=== PATIENT | male | born 1935 | race African-American/Black ===

== ENCOUNTER 2021-11-05 09:25 | Emergency (ER) | payer OTHER ==
--- NOTE | 2021-11-05 12:04 | ER ---
Nurse's Notes [facility] Name: Dean Cho Age: 85 yrs Sex: Male : 1935 Arrival Date: 11/05/2021 Time: 09:27 Bed 1 Private MD: Diagnosis: Coronavirus infection, unspecified Presentation: 11/05 10:02 Chief complaint: Patient states: he was around his neighbor over the weekend who ended ap3 up testing positive for COVID. Patient reports that he is having cold-like symptoms at this time. Coronavirus screen: Client presents with at least one sign or symptom that may indicate coronavirus-19. Ebola Screen: No symptoms or risks identified at this time. Initial Sepsis Screen: Does the patient meet any 2 criteria? No. Patient's initial sepsis screen is negative. Does the patient have a suspected source of infection? No. Patient's initial sepsis screen is negative. Risk Assessment: Do you want to hurt yourself or someone else? Patient reports no desire to harm self or others. Onset of symptoms was November 03, 2021. 10:02 Method Of Arrival: Ambulatory ap3 10:02 Acuity: LUCY 4 ap3 Triage Assessment: 10:05 General: Appears in no apparent distress. Behavior is calm, cooperative. Pain: Denies ap3 pain. Neuro: Level of Consciousness is awake, alert, obeys commands, Oriented to person, place, time, situation, Gait is steady. Cardiovascular: Patient's skin is warm and dry. Respiratory: Reports cough that is Airway is patent Respiratory effort is even, unlabored. Historical: - Allergies: 10:04 No Known Allergies; ap3 - PMHx: 10:04 Cancer; Colon; Hyperlipidemia; Hypertension; ileostomy; ap3 - Immunization history:: Client reports receiving the 2nd dose of the Covid vaccine. - Social history:: Smoking status: Patient denies any tobacco usage or history of. Screenin:05 Abuse screen: Denies threats or abuse. Nutritional screening: No deficits noted. ap3 Tuberculosis screening: No symptoms or risk factors identified. Fall Risk None identified. Assessment: 12:15 General: Appears in no apparent distress. comfortable, Behavior is calm, cooperative. ss Neuro: Ashley Agitation-Sedation Scale (RASS): 0 - Alert and Calm. Cardiovascular: Capillary refill < 3 seconds. Respiratory: Airway is patent Respiratory effort is even, unlabored, Respiratory pattern is regular, symmetrical. Derm: Skin is intact, is healthy with good turgor, Skin is dry, Skin is pink, warm \T\ dry. normal. Vital Signs: 10:02 BP 140 / 74; Pulse 97; Resp 17; Temp 97.9; Pulse Ox 100% ; Weight 66.68 kg; Height 5 ap3 ft. 10 in. (177.80 cm); 10:02 Body Mass Index 21.09 (66.68 kg, 177.80 cm) ap3 ED Course: 09:27 Patient arrived in ED. rg4 09:34 [facility] Snider [facility]C [facility] kb 09:34 Nikhil Childress MD is Attending Physician. kb 10:04 Triage completed. ap3 10:06 Arm band placed on right wrist. ap3 12:15 Patient has correct armband on for positive identification. Bed in low position. ss 12:15 No provider procedures requiring assistance completed. Patient did not have IV access ss during this emergency room visit. Administered Medications: No medications were administered Medication: 10:06 VIS not applicable for this client. ap3 Outcome: 12:03 Discharge ordered by . kb 12:15 Discharged to home ambulatory, with family. ss 12:15 Condition: good 12:15 Discharge instructions given to patient, Instructed on discharge instructions, follow up and referral plans. Demonstrated understanding of instructions, follow-up care. 12:17 Patient left the ED. ss Signatures: Melina Snider FNP-C FNP-Ckb Smirch, Shelby, RN RN ss Garcia, Rubi rg4 Kaity Car RN RN ap3
--- NOTE | 2021-11-05 12:04 | EDPHYS ---
Physician Documentation [facility] Name: Dean Cho Age: 85 yrs Sex: Male : 1935 Arrival Date: 11/05/2021 Time: 09:27 Bed 1 Private MD: ED Physician Nikhil Childress HPI: 11/05 19:49 This 85 yrs old Black Male presents to ER via Ambulatory with complaints of Needs Covid kb Test. 19:50 The patient or guardian reports cough. Onset: The symptoms/episode began/occurred 1 kb week(s) ago. Severity of symptoms: At their worst the symptoms were mild, in the emergency department the symptoms are unchanged. Modifying factors: The symptoms are alleviated by nothing, the symptoms are aggravated by nothing. Associated signs and symptoms: The patient has no apparent associated signs or symptoms. The patient has not experienced similar symptoms in the past. The patient has not recently seen a physician. Pt states his neighbor came over on Thursday and then tested positive for covid on Thursday so he came in to get a routine test to make sure he didn't have it. Reports slight cough. Historical: - Allergies: 10:04 No Known Allergies; ap3 - PMHx: 10:04 Cancer; Colon; Hyperlipidemia; Hypertension; ileostomy; ap3 - Immunization history:: Client reports receiving the 2nd dose of the Covid vaccine. - Social history:: Smoking status: Patient denies any tobacco usage or history of. ROS: 19:49 Constitutional: Negative for fever, chills, and weight loss. kb 19:49 Respiratory: Positive for cough, Negative for dyspnea on exertion, hemoptysis, orthopnea, pleurisy, shortness of breath, sputum production, wheezing. 19:49 All other systems are negative. Exam: 19:49 Constitutional: This is a well developed, well nourished patient who is awake, alert, kb and in no acute distress. Head/Face: Normocephalic, atraumatic. ENT: Moist Mucous membranes Cardiovascular: Regular rate and rhythm with a normal S1 and S2. No gallops, murmurs, or rubs. No pulse deficits. Respiratory: Respirations even and unlabored. No increased work of breathing. Talking in full sentences Abdomen/GI: Soft, non-tender. No distention Skin: Warm, dry with normal turgor. Normal color. MS/ Extremity: Pulses equal, no cyanosis. Neurovascular intact. Full, normal range of motion. Neuro: Awake and alert, GCS 15, oriented to person, place, time, and situation. Moves all extremities. Normal gait. Psych: Awake, alert, with orientation to person, place and time. Behavior, mood, and affect are within normal limits. Vital Signs: 10:02 BP 140 / 74; Pulse 97; Resp 17; Temp 97.9; Pulse Ox 100% ; Weight 66.68 kg; Height 5 ap3 ft. 10 in. (177.80 cm); 10:02 Body Mass Index 21.09 (66.68 kg, 177.80 cm) ap3 MDM: 10:02 Patient medically screened. kb 19:49 Data reviewed: vital signs, nurses notes. Data interpreted: Pulse oximetry: on room air kb is 100 %. Interpretation: normal. Counseling: I had a detailed discussion with the patient and/or guardian regarding: the historical points, exam findings, and any diagnostic results supporting the discharge/admit diagnosis, lab results, the need for outpatient follow up, a family practitioner, to return to the emergency department if symptoms worsen or persist or if there are any questions or concerns that arise at home. 11/05 10:06 Order name: Flu; Complete Time: 11:16 ap3 11/05 11:01 Order name: SARS-COV-2 RT PCR; Complete Time: 11:58 EDMS Administered Medications: No medications were administered Disposition: 11/06 07:21 Co-signature as Attending Physician, Nikhil Childress MD. rn Disposition Summary: 11/05/21 12:03 Discharge Ordered Location: Home kb Condition: Stable kb Diagnosis - Coronavirus infection, unspecified kb Followup: kb - With: Emergency Department - When: As needed - Reason: Worsening of condition Followup: kb - With: Private Physician - When: 2 - 3 days - Reason: Recheck today's complaints, Continuance of care, Re-evaluation by your physician Discharge Instructions: - Discharge Summary Sheet kb - Viral Respiratory Infection, [id number] kb - COVID-19 kb Forms: - Medication Reconciliation Form kb - Thank You Letter kb - Antibiotic Education kb - Prescription Opioid Use kb Signatures: Dispatcher [employer] EDMS Melina Snider, MAYRA-C MAYRA-Nikhil Sage MD MD rn Kaity Car RN RN ap3 Corrections: (The following items were deleted from the chart) 11/05 11:01 10:07 COVID 19 CPL+BRZ ordered. EDMS EDMS
[2021-11-05 12:24] VITALS: BP 140/74; TEMP 97.9; O2SAT 100
== END 2021-11-05 12:17 | disposition home or self-care (01) ==
LOC: ER 09:25
DX: R05.9 Cough, unspecified (principal); U07.1 COVID-19; I10 Essential (primary) hypertension; E78.2 Mixed hyperlipidemia
CPT/HCPCS: 87804 ×2; U0003; 99281